=== PATIENT | male | born 1960 | race Hispanic/Latino ===

== ENCOUNTER 2016-06-21 14:44 | Emergency (ER) | payer MEDICAID, OTHER ==
[2016-06-21 14:58] VITALS: BMI 32.5
[2016-06-21 15:01] VITALS: O2SAT 98
[2016-06-21 15:34] LABS: EOS # 0.2 K/uL (0.0-0.7); MONO # 0.6 K/uL (0.0-0.8)
[2016-06-21 15:38] LABS: BASO % 0.4 % (0.0-2.0); EOS % 2.8 % (0.0-4.0); LYMPH % 13.2 % (20.0-40.0); MEAN CELL VOLUME 89.9 fL (80.0-94.0); MEAN CORPUSCULAR HEMOGLOBIN 30.8 pg (27.0-31.0); MEAN CORPUSCULAR HGB CONC 34.3 g/dL (33.0-37.0); MONO % 7.8 % (0.0-10.0); NRBC % 0.1 % (0.0-2.0); RED CELL DISTRIBUTION WIDTH 13.3 % (11.5-14.5); WHITE BLOOD COUNT 7.5 K/uL (4.8-10.8)
[2016-06-21 15:40] LABS: CHLORIDE 98 mmol/L (98-107); POTASSIUM 4.4 mmol/L (3.6-5.2); SODIUM 141 mmol/L (132-148)
[2016-06-21 15:42] LABS: ALB/GLOB RATIO 1.5 (1.0-2.1); ALKALINE PHOSPHATASE 65 U/L (38-126); AST/SGOT 57 U/L (17-59); BILIRUBIN,TOTAL 1.1 mg/dL (0.2-1.3); CARBON DIOXIDE 27 mmol/L (22-30); GFR AFRICAN-AMERICAN > 60; TOTAL PROTEIN 7.5 g/dL (6.3-8.3)
[2016-06-21 15:43] LABS: ALT/SGPT 64 U/L (21-72); BLOOD UREA NITROGEN 21 mg/dL (9-20); CALCIUM 9.3 mg/dl (8.6-10.4); GLUCOSE,RANDOM 97 mg/dL (75-110)
--- NOTE | 2016-06-21 15:51 | C.PDOC ---
History Of Present Illness 56 year old male presents to the ED with complaints of constant epigastric pain radiating back with mild nausea since this afternoon. Patient states the symptoms began when he was lying down in bed after lunch. He notes the pain is worse with deep breaths and movement and has never experienced this before. Patient also reports he lost 100 lbs in the past year and gained 30lbs back and has had right upper back pain and epigastric pain since but never had it checked. Denies vomiting, diarrhea, fever, chills, or any other complaints at this time. Time Seen by Provider: 06/21/16 15:05 Chief Complaint (Nursing): Abdominal Pain History Per: Patient History/Exam Limitations: no limitations Onset/Duration Of Symptoms: Hrs Current Symptoms Are (Timing): Still Present Severity: Mild Location Of Pain/Discomfort: Epigastric Radiation Of Pain To:: Back Quality Of Discomfort: "Pain" Associated Symptoms: Nausea. denies: Fever, Chills, Vomiting, Diarrhea, Urinary Symptoms Past Medical History Reviewed: Historical Data, Nursing Documentation, Vital Signs Vital Signs: Last Vital Signs Temp 97.6 F 06/21/16 14:58 Pulse 107 H 06/21/16 14:58 Resp 20 06/21/16 14:58 BP 146/85 06/21/16 14:58 Pulse Ox 98 06/21/16 20:58 Family History: States: Unknown Family Hx - Social History Hx Alcohol Use: Yes Hx Substance Use: No - Immunization History Hx Tetanus Toxoid Vaccination: No Hx Influenza Vaccination: No Hx Pneumococcal Vaccination: No Review Of Systems Except As Marked, All Systems Reviewed And Found Negative. Constitutional: Negative for: Fever, Chills Gastrointestinal: Positive for: Nausea, Abdominal Pain. Negative for: Vomiting , Diarrhea Physical Exam - Physical Exam Appears: Non-toxic, Other (+Uncomfortable) Skin: Normal Color, Warm, Dry Head: Atraumatic, Normacephalic Eye(s): bilateral: Normal Inspection Oral Mucosa: Moist Chest: Symmetrical, No Deformity Cardiovascular: Rhythm Regular, No Murmur Respiratory: Normal Breath Sounds, No Accessory Muscle Use, No Rales, No Rhonchi , No Wheezing Gastrointestinal/Abdominal: Bowel Sounds (+Bowel sounds present and a little quiet), Soft, Tenderness (+RUQ tenderness), No Distention, Guarding, No Rebound Extremity: Normal ROM Neurological/Psych: Oriented x3, Normal Speech, Normal Cognition ED Course And Treatment - Laboratory Results Result Diagrams: 06/21/16 15:28 06/21/16 15:28 Lab Interpretation: Abnormal Interpretation Of Abnormal: Mild thrombocytopenia O2 Sat by Pulse Oximetry: 98 (Room air) Pulse Ox Interpretation: Normal - CT Scan/US Abdominal ultrasound Other Rad Studies (CT/US): Read By Radiologist, Radiology Report Reviewed CT/US Interpretation: Accession No. : [id number]. Patient Name / ID : RICHARD NEUMANN / [id number]. Exam Date : 06/21/2016 16:05:35 ( Approved ). Study Comment : Sex / Age : M / 56Y. Creator : SUJATHA JORDAN MD. Dictator : SUJATHA JORDAN MD. Tool And Die Maker/Designer : Special Inspector : SUJATHA JORDAN MD. Approver2 : Report Date : 06/21/2016 16:33:37. My Comment : . HISTORY: ABDOMINAL PAIN. COMPARISON: None. TECHNIQUE: Sonographic evaluation of the abdomen. FINDINGS: LIVER: Measures 20.3 cm. There is diffuse increased echogenicity of the liver parenchyma with heterogeneous echotexture. No mass. No intrahepatic bile duct dilatation. GALLBLADDER: Unremarkable. No gallstones. COMMON BILE DUCT: Measures 5.0 mm. No stones. No dilatation. PANCREAS: Unremarkable as visualized. No mass. No ductal dilatation. RIGHT KIDNEY: Measures 12.9cm. Normal echogenicity. No calculus, mass, or hydronephrosis. LEFT KIDNEY: Measures 14.4cm. Normal echogenicity. No calculus, mass, or hydronephrosis. SPLEEN: Enlarged and measures 16.0 cm. Normal echotexture. AORTA: No aneurysmal dilatation. IVC: Unremarkable. OTHER FINDINGS: None. IMPRESSION: 1. Mild hepatomegaly and hepatic steatosis. 2. Moderate splenomegaly. CT ABD & Pelvis Other Rad Studies (CT/US): Read By Radiologist, Radiology Report Reviewed CT/US Interpretation: FINDINGS: LIMITATIONS: Exam is somewhat limited by mild streak/motion artifact. LOWER THORAX: No infiltrate seen in the lung bases. ABDOMEN: LIVER: Liver is diffusely cirrhotic in appearance. Multiple abdominal collateral vessels are seen. This constellation of findings is compatible with portal hypertension due to chronic liver disease. Normal enhancement of the portal vein. GALLBLADDER AND BILE DUCTS: No CT evidence of acute cholecystitis. No evidence of. significant biliary ductal dilatation. PANCREAS : No CT evidence of acute pancreatitis. SPLEEN: Splenomegaly, with the spleen measuring 17 cm in length. ADRENALS: No acute abnormality of the adrenal glands identified. KIDNEYS AND URETERS: Tiny, nonobstructing right renal stone. Scarring involving the upper pole. of the right kidney. Incidental fluid density right renal lesions, measuring less than 10 mm. No further. followup imaging is recommended for incidental lesions of this size, unless otherwise clinically. indicated. No evidence of hydroureteronephrosis. STOMACH AND BOWEL: Colonic diverticulosis, with no evidence of acute diverticulitis. No. evidence of small bowel obstruction. No acute abnormality of the stomach or duodenum identified. APPENDIX: Appendix is seen, and is within normal limits in appearance. PELVIS: BLADDER: Right inguinal hernia is seen, containing a small part of the bladder. There is no CT. evidence of hernia incarceration. REPRODUCTIVE: No acute abnormality of the reproductive organs is seen. ABDOMEN and PELVIS: INTRAPERITONEAL SPACE: No evidence of free intraperitoneal air or fluid. BONES/JOINTS: No acute fractures or other acute bony abnormality noted. SOFT TISSUES: See above. VASCULATURE: No evidence of abdominal aortic aneurysm or dissection. LYMPH NODES: No evidence of diffuse lymphadenopathy. IMPRESSION: - No evidence of significant acute process. - Right inguinal hernia, containing a part of the bladder. - Findings compatible with portal hypertension due to chronic liver disease/ cirrhosis. - Splenomegaly. - See above for remaining findings. Progress Note: Abdomen Complete US and Blood work ordered and reviewed. Patient treated with Zofran and Morphine. Patient refused the Morphine. 5:00 Patient feels slightly better but continues to have epigastric pain with tenderness. CT abdomen and pelvis ordered. Reevaluation Time: 21:08 Reassessment Condition: Improved (Patient is pain free at this time.) Disposition - Disposition Referrals: [facility] [Outside] Disposition: HOME/ ROUTINE Disposition Time: 21:08 Condition: IMPROVED Instructions: Cirrhosis (ED), Portal Hypertension (ED), Thrombocytopenia (ED) - Clinical Impression Clinical Impression: Abdominal pain, Cirrhosis of liver, Thrombocytopenia, Splenomegaly, Portal hypertension - Scribe Statement The provider has reviewed the documentation as recorded by the Scribe Dmitry Snow. Provider Attestation: All medical record entries made by the Scribe were at my direction and personally dictated by me. I have reviewed the chart and agree that the record accurately reflects my personal performance of the history, physical exam, medical decision making, and the department course for this patient. I have also personally directed, reviewed, and agree with the discharge instructions and disposition.
--- NOTE | 2016-06-21 16:35 | US ---
HISTORY: ABDOMINAL PAIN COMPARISON: None. TECHNIQUE: Sonographic evaluation of the abdomen. FINDINGS: LIVER: Measures 20.3 cm. There is diffuse increased echogenicity of the liver parenchyma with heterogeneous echotexture. No mass. No intrahepatic bile duct dilatation. GALLBLADDER: Unremarkable. No gallstones. COMMON BILE DUCT: Measures 5.0 mm. No stones. No dilatation. PANCREAS: Unremarkable as visualized. No mass. No ductal dilatation. RIGHT KIDNEY: Measures 12.9cm. Normal echogenicity. No calculus, mass, or hydronephrosis. LEFT KIDNEY: Measures 14.4cm. Normal echogenicity. No calculus, mass, or hydronephrosis. SPLEEN: Enlarged and measures 16.0 cm. Normal echotexture. AORTA: No aneurysmal dilatation. IVC: Unremarkable. OTHER FINDINGS: None. IMPRESSION: 1. Mild hepatomegaly and hepatic steatosis. 2. Moderate splenomegaly.
[2016-06-21] MEDS ORDERED: Aluminum Hydroxide/Magnesium Hydroxide Susp (30 mL) PO STA (17:04)
[2016-06-21] MEDS ORDERED: Iohexol 240 (50 ml) PO ONE (17:04)
[2016-06-21] MEDS ORDERED: Alum-Mag Hydrox-Simethicone Susp (30 mL) ONE (17:19)
[2016-06-21] MEDS ORDERED: Iohexol 240 (50 ml) ONE (17:19)
[2016-06-21] MEDS ORDERED: Iohexol 350mg/ml 100 ML ONE (17:48)
--- NOTE | 2016-06-21 20:31 | CT ---
EXAM: CT Abdomen and Pelvis With Intravenous Contrast. CLINICAL HISTORY: 56 years old, male; Pain; Abdominal pain; Epigastric; Additional info: Epigastric pain TECHNIQUE: Axial computed tomography images of the abdomen and pelvis with intravenous contrast. This CT exam was performed using one or more of the following dose reduction techniques: automated exposure control, adjustment of the mA and/or kV according to patient size, and/or use of iterative reconstruction technique. Coronal and sagittal reformatted images were created and reviewed. CONTRAST: 100 mL of omni 350 administered intravenously. EXAM DATE/TIME: 06/21/2016 5:03 PM COMPARISON: No relevant prior studies available. FINDINGS: LIMITATIONS: Exam is somewhat limited by mild streak/motion artifact. LOWER THORAX: No infiltrate seen in the lung bases. ABDOMEN: LIVER: Liver is diffusely cirrhotic in appearance. Multiple abdominal collateral vessels are seen. This constellation of findings is compatible with portal hypertension due to chronic liver disease. Normal enhancement of the portal vein. GALLBLADDER AND BILE DUCTS: No CT evidence of acute cholecystitis. No evidence of significant biliary ductal dilatation. PANCREAS: No CT evidence of acute pancreatitis. SPLEEN: Splenomegaly, with the spleen measuring 17 cm in length. ADRENALS: No acute abnormality of the adrenal glands identified. KIDNEYS AND URETERS: Tiny, nonobstructing right renal stone. Scarring involving the upper pole of the right kidney. Incidental fluid density right renal lesions, measuring less than 10 mm. No further followup imaging is recommended for incidental lesions of this size, unless otherwise clinically indicated. No evidence of hydroureteronephrosis. STOMACH AND BOWEL: Colonic diverticulosis, with no evidence of acute diverticulitis. No evidence of small bowel obstruction. No acute abnormality of the stomach or duodenum identified. APPENDIX: Appendix is seen, and is within normal limits in appearance. PELVIS: BLADDER: Right inguinal hernia is seen, containing a small part of the bladder. There is no CT evidence of hernia incarceration. REPRODUCTIVE: No acute abnormality of the reproductive organs is seen. ABDOMEN and PELVIS: INTRAPERITONEAL SPACE: No evidence of free intraperitoneal air or fluid. BONES/JOINTS: No acute fractures or other acute bony abnormality noted. SOFT TISSUES: See above. VASCULATURE: No evidence of abdominal aortic aneurysm or dissection. LYMPH NODES: No evidence of diffuse lymphadenopathy. IMPRESSION: - No evidence of significant acute process. - Right inguinal hernia, containing a part of the bladder. - Findings compatible with portal hypertension due to chronic liver disease/cirrhosis. - Splenomegaly. - See above for remaining findings.
[2016-06-21 21:26] VITALS: BP 144/89; PULSE 111; RESP 18; TEMP 97.7
== END 2016-06-21 21:26 | disposition home or self-care (01) ==
LOC: C.ER 14:44
DX: K74.60 Unspecified cirrhosis of liver (principal); K76.6 Portal hypertension; D69.6 Thrombocytopenia, unspecified; R16.1 Splenomegaly, not elsewhere classified
CPT/HCPCS: 74177; 76700; 80053; 83690; 85025; 96374; 99285; J2405; Q9966; Q9967